=== PATIENT | male | born 1990 | race Caucasian/White ===

== ENCOUNTER 2022-01-14 05:05 | Emergency (ER) | payer OTHER ==
[2022-01-14] MEDS ORDERED: SODIUM CHLORIDE 0.9% 1,000 ML IV STA (05:20)
[2022-01-14] MEDS ORDERED: KETOROLAC 15 MG/ML VIAL IVP STA ×2 (05:20→06:26)
--- NOTE | 2022-01-14 05:32 | ED Physician Documentation ---
History of Present Illness - Stated complaint Stated Complaint: BACK/SIDE PAIN - Chief complaint Chief Complaint: Back Pain - History obtained from History obtained from: Patient - History of Present Illness Timing: Prior to arrival - Additonal information Additional information: 31-year-old male with no reported past medical history presents by private vehicle for sudden onset left-sided flank pain. Patient states that he had woken up and was making dinner when all of a sudden he felt sharp, stabbing, nonradiating left flank pain. The sudden onset of pain caused him to become nauseous and vomit once. He decided to present for evaluation. No medications taken for pain prior to arrival. Continuing to endorse pain in the ED. Review of Systems Ten Systems: 10 systems reviewed and negative Constitutional: denies: Fever, Chills Cardiac: denies: Chest pain / pressure, Palpitations Respiratory: denies: Dyspnea, Cough, Wheezing GI: reports: Nausea, Vomiting. denies: Abdominal Pain : reports: Other (FLANK PAIN). denies: Dysuria, Frequency PD PAST MEDICAL HISTORY - Past Medical History Past Medical History: No - Present Medications Home Medications: Ambulatory Orders Medication Instructions Recorded Confirmed Naproxen Sodium [Naprelan] 375 mg PO BID #30 tab 01/14/22 Ondansetron Odt [Zofran] 4 mg TL Q6H PRN #20 tablet 01/14/22 Oxycodone HCl/Acetaminophen 1 - 2 each PO Q6H PRN #14 tablet 01/14/22 [Percocet 5-325 mg Tablet] Tamsulosin HCl [Flomax] 0.4 mg PO DAILY #20 cap 01/14/22 - Allergies Allergies/Adverse Reactions: Allergies Allergy/AdvReac Type Severity Reaction Status Date / Time No Known Drug Allergies Allergy Verified 01/14/22 05:13 PD ED PE NORMAL - Vitals Vital signs reviewed: Yes - General General: Alert and oriented X 3, Well developed/nourished, Other (IN PAIN) - Cardiac Cardiac: RRR, No murmur, Strong equal pulses - Respiratory Respiratory: No respiratory distress, Clear bilaterally - Abdomen Abdomen: Soft, Non tender, Non distended, No organomegaly - Back Back: No CVA TTP, No spinal TTP - Derm Derm: Normal color, Warm and dry, No rash - Extremities Extremities: No deformity, No tenderness to palpate, Normal ROM s pain, No edema - Neuro Neuro: Alert and oriented X 3, safety investigator 2-12 intact, Normal speech - Psych Psych: Normal mood, Normal affect Results - Vitals Vitals: Vital Signs - 24 hr 01/14/22 05:13 Temperature 36.6 C Heart Rate 69 Respiratory 20 Rate Blood Pressure 155/100 H O2 Saturation 100 Oxygen O2 Source Room air - Labs Labs: Laboratory Tests 01/14/22 01/14/22 05:18 05:18 WBC 11.4 H RBC 5.33 Hgb 15.9 Hct 45.0 MCV 84.4 MCH 29.8 MCHC 35.3 RDW 11.9 L Plt Count 238 MPV 10.5 Neut # (Auto) 6.9 H Lymph # (Auto) 3.6 H Culberson # (Auto) 0.8 Eos # (Auto) 0.1 Baso # (Auto) 0.1 Absolute Nucleated RBC 0.00 Nucleated RBC % 0.0 Sodium 138 Potassium 3.2 L Chloride 98 L Carbon Dioxide 26 Anion Gap 14.0 H BUN 17 Creatinine 1.2 Estimated GFR (MDRD) 71 L Glucose 129 H Calcium 10.3 Total Bilirubin 0.9 AST 32 ALT 27 Alkaline Phosphatase 58 Total Protein 8.7 H Albumin 5.6 H Globulin 3.1 Albumin/Globulin Ratio 1.8 PD MEDICAL DECISION MAKING - ED course Complexity details: reviewed old records, reviewed results, re-evaluated patient, considered differential, d/w patient ED course: Sudden onset left-sided flank pain. Appears consistent with kidney stone, however patient does not have reproducible CVA tenderness to palpation. Labs, pain medications, noncontrast CT ordered. CT significant for 6 mm stone with mild to moderate hydronephrosis. Kidney function is within normal limits. Patient's pain is controlled with medications. Patient was informed of his results, counseled on the importance of taking all medications as prescribed and the importance of following up with urology. Departure - Departure Disposition: 01 Home, Self Care Clinical Impression: Renal colic on left side Condition: Stable Instructions: ED Stone Renal W Colic Prescriptions: Tamsulosin HCl [Flomax] 0.4 mg PO DAILY #20 cap Naproxen Sodium [Naprelan] 375 mg PO BID #30 tab Oxycodone HCl/Acetaminophen [Percocet 5-325 mg Tablet] 1 - 2 each PO Q6H PRN #14 tablet PRN Reason: pain Ondansetron Odt [Zofran] 4 mg TL Q6H PRN #20 tablet PRN Reason: Nausea / Vomiting Comments: Today you are diagnosed with a kidney stone. Your stone is 6 mm and is causing a small amount of fluid buildup in your kidney, however this is common in kidney stones and your kidney function today is normal. You are being sent home today with medications for pain, nausea, and for stone passage. It is very important that you take all of these medications as prescribed. Please follow-up as soon as possible with urology for further management of your stone. RX SENT TO [facility] [place]
[2022-01-14 05:36] LABS: BASOPHILS # (AUTO) 0.1 10^3/uL (0.0-0.1); BASOPHILS % (AUTO) 0.7 %; EOSINOPHILS # (AUTO) 0.1 10^3/uL (0.0-0.7); EOSINOPHILS % (AUTO) 0.8 %; HGB - HEMOGLOBIN 15.9 g/dL (14.0-18.0); LYMPHOCYTES # (AUTO) 3.6 10^3/uL (1.5-3.5); LYMPHOCYTES % (AUTO) 31.3 %; MEAN CORPUSCULAR HEMOGLOBIN 29.8 pg (27.0-31.0); MEAN CORPUSCULAR HGB CONC 35.3 g/dL (32.0-36.0); MEAN CORPUSCULAR VOLUME 84.4 fL (80.0-94.0); MEAN PLATELET VOLUME 10.5 fL (7.4-11.4); MONOCYTES # (AUTO) 0.8 10^3/uL (0.0-1.0); MONOCYTES % (AUTO) 6.6 %; NEUTROPHILS # (AUTO) 6.9 10^3/uL (1.5-6.6); NEUTROPHILS % (AUTO) 60.4 %; PLT - PLATELET COUNT 238 10^3/uL (130-450); RED BLOOD COUNT 5.33 10^6/uL (4.70-6.10); RED CELL DISTRIBUTION WIDTH 11.9 % (12.0-15.0); WHITE BLOOD COUNT 11.4 x10^3/uL (4.8-10.8)
[2022-01-14 05:40] LABS: ALBUMIN 5.6 g/dL (3.2-5.5); ALBUMIN/GLOBULIN RATIO 1.8 (1.0-2.2); BILIRUBIN,TOTAL 0.9 mg/dL (0.2-1.0); CALCIUM 10.3 mg/dL (8.5-10.3); CREATININE 1.2 mg/dL (0.6-1.2); POTASSIUM 3.2 mmol/L (3.5-5.0); TOTAL PROTEIN 8.7 g/dL (6.7-8.2)
[2022-01-14] MEDS ORDERED: ONDANSETRON 4 MG/2 ML VIAL IVP STA (05:51)
[2022-01-14] MEDS ORDERED: oxyCODONE 5 MG TABLET PO STA (06:26)
[2022-01-14 07:00] VITALS: BP 144/89
--- NOTE | 2022-01-14 09:10 | CT Report ---
PROCEDURE: Abdomen/Pelvis WO INDICATIONS: SUDDEN L FLANK PAIN TECHNIQUE: Noncontrast 5 mm thick sections acquired from the diaphragms to the symphysis. 5 mm coronal and sagi ttal reformats were then performed. For radiation dose reduction, the following was used: automated exposure control, adjustment of mA and/or kV according to patient size. COMPARISON: None. FINDINGS: Image quality: Excellent. ABDOMEN: Lung bases: Lung bases are clear. Heart size is normal. Solid organs: There is a 5 mm stone in the mid left ureter causing [id number] left hydronephro sis. Kidneys are normal in size. There are bilateral renal stones. The largest stone is seen in the s uperior pole of the left kidney measuring 8 mm, demonstrating CT density 552.8 Hounsfield units. Smal ler 1-3 mm punctate calculi are seen in kidneys bilaterally. No right hydronephrosis. Liver and spleen are normal in size. Gallbladder is normal. Pancreas is normal in contours. No adr enal nodules. Peritoneum and bowel: Bowel loops demonstrate normal wall thickness and caliber. No free fluid or ai r. Nodes and vessels: No retroperitoneal or mesenteric adenopathy by size criteria. Aorta and inferior vena cava are normal in caliber. Miscellaneous: No ventral hernias. PELVIS: Genitourinary: Bladder wall thickness is normal. Miscellaneous: No inguinal hernias or adenopathy. Bones: No suspicious bony lesions. No vertebral body compression fractures. IMPRESSION: 1. A 5 mm of fractured stone in the mid left ureter causing mild-to moderate left hydronephrosis. 2. Multiple other nonobstructive renal calculi in kidneys. No significant discrepancy with the preliminary interpretation. Reviewed by: Izabella Norwood MD on 01/14/2022 9:09 AM PDT Approved by: Izabella Norwood MD on 01/14/2022 9:09 AM PDT Station ID: [id number]
== END 2022-01-14 07:04 | disposition home or self-care (01) ==
LOC: ED 05:05
DX: N23 Unspecified renal colic (principal)
CPT/HCPCS: 36415; 74176; 80053; 85025; 96361; 96374; 96375; 96376; 99282; 99284; A9270